=== PATIENT | female | born 1945 | race Caucasian/White ===

== ENCOUNTER 2016-10-30 11:43 | Inpatient (IN) ==
[~2016-10-30 11:43] MED LIST: ceFAZolin 1 GM VIAL IV SCH
[2016-10-30] MEDS ORDERED: HYDROmorphone 2 MG/ML SYRINGE IV PRN ×3 (12:26→19:12)
[2016-10-30 12:33] LABS: Basophils # (Auto) 0 K/mcL (0.0-0.3); Basophils % (Auto) 0.3 % (0.0-2.0); Eosinophils # (Auto) 0.2 K/mcL (0.0-0.7); Eosinophils % (Auto) 1.5 % (0.0-7.0); Granulocytes % (Auto) 79.7 % (38.0-78.0); Lymphocytes # (Auto) 1.3 K/mcL (1.5-4.8); Lymphocytes % (Auto) 10.4 % (15.5-49.0); Mean Cell Volume 84.7 fL (80.0-100.0); Mean Corpuscular HGB Conc 31.6 g/dL (31.0-36.0); Mean Corpuscular Hemoglobin 26.8 pg (26.0-34.0); Monocytes % (Auto) 8.1 % (1.0-9.0); Platelet Count 327 K/mcL (140-440); RBC 4.13 M/mcL (4.00-5.20); Red Cell Distribution Width 16.8 % (11.5-14.5)
[2016-10-30 12:46] LABS: Blood Urea Nitrogen 13 mg/dl (8-23)
[2016-10-30 15:58] LABS: Appearance,Urine HAZY; Bacteria,Urine 0 /hpf (0); Bilirubin,Urine NEG (NEG); Color,Urine YELLOW; Glucose,Urine (UA) NEGATIVE (NEG); Leukocyte Esterase,Urine 250 /uL (NEG); Mucus,Urine FEW /hpf (0); Nitrate,Urine NEG (NEG); Protein,Urine NEG (NEG); Specific Gravity,Urine 1.023 (1.000-1.035); Urine Blood NEG mg/dL (<0.03); Urine RBC 1 /hpf (0-1); Urine Squamous Epithelial Cell 12 /hpf (0-4); Urine Transitional Epi Cells < 1 /hpf (0-2); Urine WBC 7 /hpf (0-4); Urobilinogen,Urine NEG (NEG)
[2016-10-30] MEDS ORDERED: 0.9 % SODIUM CHLORIDE 250 ML IV SCH (16:45)
[2016-10-30] MEDS ORDERED: TRANEXAMIC ACID 1,000 MG/10 ML VIAL IV ONE ×3 (17:10→19:43)
[2016-10-30] MEDS ORDERED: MIDAZOLAM 5 MG/5 ML VIAL IV ONE (17:10)
[2016-10-30] MEDS ORDERED: LIDOCAINE HCL/PF 100 MG/5 ML SYRINGE IV ONE (17:10)
[2016-10-30] MEDS ORDERED: ROPIVACAINE HCL/PF 30 ML VIAL IJ ONE (17:10)
[2016-10-30] MEDS ORDERED: PROPOFOL 200 MG/20 ML VIAL IV ONE (17:10)
[2016-10-30] MEDS ORDERED: PHENYLEPHRINE 10 MG/ML VIAL IV ONE (17:10)
[2016-10-30] MEDS ORDERED: ONDANSETRON 4 MG/2 ML VIAL IV ONE (17:10)
[2016-10-30] MEDS ORDERED: SUCCINYLCHOLINE 20 MG/ML ML IV ONE (17:10)
[2016-10-30] MEDS ORDERED: fentaNYL 250 MCG/5 ML VIAL IV ONE (17:10)
[2016-10-30] MEDS ORDERED: MEPERIDINE 25 MG/ML SYRINGE IV PRN (18:45)
[2016-10-30] MEDS ORDERED: ePHEDrine 50 MG/ML AMPUL IV PRN (18:45)
[2016-10-30] MEDS ORDERED: LACTATED RINGERS 1,000 ML IV SCH (18:45)
[2016-10-30] MEDS ORDERED: METHOCARBAMOL 1,000 MG/10 ML VIAL IV PRN (18:45)
[2016-10-30] MEDS ORDERED: METOPROLOL TARTRATE 5 MG/5 ML VIAL IV PRN (18:45)
[2016-10-30] MEDS ORDERED: FLUMAZENIL 0.1 MG/ML ML IV PRN (18:45)
[2016-10-30] MEDS ORDERED: IPRATROPIUM/ALBUTEROL 3 ML AMPUL.NEB NEB PRN (18:45)
[2016-10-30] MEDS ORDERED: diphenhydrAMINE 50 MG/ML VIAL IV PRN (18:45)
[2016-10-30] MEDS ORDERED: ATROPINE SULFATE 0.4 MG/ML VIAL IV PRN (18:45)
[2016-10-30] MEDS ORDERED: BENZOCAINE/MENTHOL 1 LOZENGE PO PRN ×2 (18:45→19:12)
[2016-10-30] MEDS ORDERED: NALOXONE HCL 0.4 MG/ML VIAL IV PRN (18:45)
[2016-10-30] MEDS ORDERED: PROMETHAZINE 25 MG/ML VIAL IV PRN (18:45)
[2016-10-30] MEDS ORDERED: ONDANSETRON 4 MG/2 ML VIAL IV PRN ×2 (18:45→19:12)
[2016-10-30] MEDS ORDERED: GENTAMICIN SULFATE 800 MG/20 ML VIAL IR ONE (18:57)
[2016-10-30] MEDS ORDERED: MAGNESIUM HYDROXIDE 30 ML ORAL.SUSP PO PRN (19:12)
[2016-10-30] MEDS ORDERED: TEMAZEPAM 15 MG CAPSULE PO PRN (19:12)
[2016-10-30] MEDS ORDERED: POLYETHYLENE GLYCOL 3350 17 GM PACKET PO PRN (19:12)
[2016-10-30] MEDS ORDERED: FLEETS ADULT ENEMA PR PRN (19:12)
[2016-10-30] MEDS ORDERED: ACETAMINOPHEN 325 MG TABLET PO PRN (19:12)
[2016-10-30] MEDS ORDERED: BISACODYL 10 MG SUPP.RECT PR PRN (19:12)
[2016-10-30] MEDS ORDERED: DIAZEPAM 5 MG TABLET PO PRN (19:14)
--- NOTE | 2016-10-30 19:19 | Brief Operative Note ---
Date of procedure: 10/30/16 Pre-op diagnosis: right shoulder 3 part fracture of the humeral proximal neck and head with d Post-op diagnosis: same Procedure: right shoulder orif and reverse tsa and bicep tenodesis Grafts/Implants: Yes Anesthesia: GETA Complications: none Surgeon: Jose Raul Navarro Rn Training: James Richard Estimated blood loss (cc): 50 Specimens Removed/Pathology: none sent Condition: stable Disposition: PACU
[2016-10-30] MEDS: fentaNYL 100 MCG/2 ML VIAL IV PRN ×2 (19:30→19:35)
[2016-10-30] MEDS ORDERED: fentaNYL 100 MCG/2 ML VIAL IV ONE (19:43)
[2016-10-30] MEDS ORDERED: HYDROmorphone 2 MG/ML SYRINGE ONE (19:44)
[2016-10-30] MEDS: 0.45 % SODIUM CHLORIDE 1,000 ML IV SCH (22:01)
[2016-10-30] MEDS: ATORVASTATIN 20 MG TABLET PO SCH (22:01)
[2016-10-30] MEDS: 0.9 % SODIUM CHLORIDE 10 ML SYRINGE IV SCH (22:02)
[2016-10-30] MEDS: DOCUSATE SODIUM 100 MG CAPSULE PO SCH (22:03)
[2016-10-30] MEDS: SENNOSIDES 1 TABLET PO SCH (22:03)
[2016-10-31] MEDS: ceFAZolin 1 GM VIAL IV SCH ×2 (01:08→10:53)
[2016-10-31] MEDS: HYDROcodone/APAP 10/325MG TABLET PO PRN ×4 (05:27→23:50)
[2016-10-31] MEDS: KETOROLAC 15 MG/ML VIAL IV PRN ×2 (05:29→18:43)
[2016-10-31] MEDS: 0.45 % SODIUM CHLORIDE 1,000 ML IV SCH ×2 (05:30→10:45)
[2016-10-31] MEDS: 0.9 % SODIUM CHLORIDE 10 ML SYRINGE IV SCH ×3 (06:10→22:18)
--- NOTE | 2016-10-31 06:48 | XRay Report ---
CLINICAL INFORMATION: Postop total shoulder prostheses COMPARISON: Preoperative film 10/25/2016 FINDINGS: Shoulder prostheses is anatomically aligned. There is a obliquely oriented fracture through the lateral surgical neck which is minimally displaced. The acromioclavicular joint shows minimal degeneration. Soft tissues swelling seen - as expected. IMPRESSION: Right total shoulder prostheses in anatomic position Interpreted and Authenticated by: Eladio Goode 10/31/16
[2016-10-31] MEDS: PANTOPRAZOLE 40 MG TABLET PO SCH (07:44)
--- NOTE | 2016-10-31 10:51 | Discharge Summary ---
Ortho Discharge - TSA - Patient Instructions Diet: Regular Diet Activity: activity as tolerated, weight bearing as tolerated Total Shoulder Protocol: Leave immobilizer in place except for bathing and ROM. Abduction pillow. Continue to wear sling until seen by physician. Codman Pendulum : These exercises use momentum produced by your body to move your shoulder joint. Bend your knees and shift your weight to your front leg, then back, allowing your arm to swing in the same directions. Using the same technique, alternately shift your weight between your right and left legs, allowing your arm to swing from side to side. These exercises are also performed in counterclockwise and clockwise circular motions. Typically these exercises are performed several times per day, for a set number repetitions or minutes, such as 20 times in a row or 5 minutes at a time. Dressing Care: Yvanel Ag - leave on for 5 days Patient Education: Joint Replacement Surgery (DC) - Follow Up Plan Follow Up Appointments: James Richard PA-C [Physician Mandarin Chinese Teacher] - 11/12/16 10:50 am Disposition: Home, Self-Care Prognosis: Good Rehab Potential: Good I certify that the patient requires SNF services: No Overall status at discharge: patient is progressing back to baseline
[2016-10-31] MEDS: DOCUSATE SODIUM 100 MG CAPSULE PO SCH ×2 (10:53→20:06)
--- NOTE | 2016-10-31 10:57 | Orthopedic Progress Note ---
Subjective Patient information: Note initiated : 10/31/16 at 10:55 am Service Date, if different from initiated Date: [] Patient: Sveta Larsen 71 y/o F admitted on 10/30/16 for Rigth Shoulder 3 part Fracture - Reverse Total . Chief Complaint: feels better with no sob and able to walk but feels weak for not eating[] Objective Vital signs: Vital Signs Temp Pulse Resp BP BP Pulse Ox 10/31/16 07:28 98.6 F 77 18 135/65 92 10/31/16 04:44 98.0 F 91 H 20 158/74 93 10/31/16 00:00 98.2 F 80 22 148/60 95 10/30/16 20:05 97.2 F L 83 16 155/82 154/66 97 10/30/16 20:00 97.5 F L 86 16 152/81 97 10/30/16 19:50 97.2 F L 82 16 155/82 161/61 99 10/30/16 19:35 97.2 F L 88 20 155/82 167/76 100 10/30/16 19:25 97.2 F L 85 16 155/82 155/79 98 10/30/16 19:20 97.2 F L 86 16 155/82 148/69 100 10/30/16 19:15 97.2 F L 95 H 16 155/82 156/88 95 10/30/16 15:40 98.2 F 94 H 16 137/76 92 10/30/16 12:20 98.0 F 92 H 18 155/82 94 10/30/16 11:43 98.9 F 76 18 155/82 98 Intake and Output 10/30/16 10/31/16 10/31/16 21:59 05:59 13:59 Intake Total 1700 / 1700 1750 / 1750 360 / 360 Output Total 1050 / 1050 Balance 1700 / 1700 700 / 700 360 / 360 Intake: IV 1000 / 1000 Sodium Chloride 0.45% 1, 1000 / 1000 000 ml @ 125 mls/hr IV . Q8H [facility] Rx#:[id number] Oral 750 / 750 360 / 360 IV - Manual Only 1700 / 1700 Output: Void Amount 1050 / 1050 Other: Meal Breakfast Percent of Meal Consumed npo 100% Feeding Ability Independent Weight 155 lb 155 lb Patient Weight 11/01/16 05:59 Weight 155 lb Intake & Output: Intake & Output 10/30/16 10/31/16 10/31/16 21:59 05:59 13:59 Intake Total 1700 / 1700 1750 / 1750 360 / 360 Output Total 1050 / 1050 Balance 1700 / 1700 700 / 700 360 / 360 Weight 155 lb 155 lb Intake: IV 1000 / 1000 Sodium Chloride 0.45% 1, 1000 / 1000 000 ml @ 125 mls/hr IV . Q8H [facility] Rx#:[id number] Oral 750 / 750 360 / 360 IV - Manual Only 1700 / 1700 Output: Void Amount 1050 / 1050 Other: Meal Breakfast Percent of Meal Consumed npo 100% Feeding Ability Independent Incision: Yes healing Incision clean and dry: Yes Dressing: Yes clean Weight bearing status: non Neurological exam IM: Yes oriented X3, Yes neurovascular intact Extremities exam IM: Yes Foot pink and warm, Yes neurovascular intact (sat only 92 percent on 2liters o2) - Labs CBC & BMP: 10/30/16 11:58 10/30/16 11:58 Labs: 10/30/16 11:58 Hgb 11.0 L Hct 35.0 L
[2016-10-31] MEDS: LACTOBACILLUS 1 CAPSULE PO SCH ×2 (11:02→22:00)
[2016-10-31] MEDS: ATORVASTATIN 20 MG TABLET PO SCH (20:02)
[2016-10-31] MEDS: SENNOSIDES 1 TABLET PO SCH (20:06)
[2016-11-01] MEDS: HYDROcodone/APAP 10/325MG TABLET PO PRN ×3 (03:58→12:17)
[2016-11-01] MEDS: 0.9 % SODIUM CHLORIDE 10 ML SYRINGE IV SCH (05:34)
[2016-11-01] MEDS: KETOROLAC 15 MG/ML VIAL IV PRN (07:02)
[2016-11-01] MEDS: PANTOPRAZOLE 40 MG TABLET PO SCH (07:03)
[2016-11-01] MEDS: DOCUSATE SODIUM 100 MG CAPSULE PO SCH (07:03)
[2016-11-01] MEDS: LACTOBACILLUS 1 CAPSULE PO SCH (07:04)
--- NOTE | 2016-11-01 11:51 | Orthopedic Progress Note ---
Subjective Patient information: Note initiated : 11/01/16 at 11:49 am Service Date, if different from initiated Date: [] Patient: Sveta Larsen 71 y/o F admitted on 10/30/16 for Rigth Shoulder 3 part Fracture - Reverse Total . Chief Complaint: [no sob and pain is minimal] Objective Vital signs: Vital Signs Temp Pulse Resp BP BP Pulse Ox 11/01/16 07:01 97.9 F 73 18 117/64 92 11/01/16 04:00 97.8 F 82 18 119/64 94 10/31/16 23:53 98.7 F 79 16 154/74 92 10/31/16 21:15 93 10/31/16 19:06 96 10/31/16 19:00 97.6 F 80 18 146/62 97 10/31/16 15:44 98.8 F 88 18 154/63 94 Intake and Output 10/31/16 11/01/16 11/01/16 21:59 05:59 13:59 Intake Total 450 / 450 400 / 400 440 / 440 Output Total 550 / 550 250 / 250 100 / 100 Balance -100 / -100 150 / 150 340 / 340 Intake: Oral 450 / 450 400 / 400 440 / 440 Output: Void Amount 550 / 550 250 / 250 100 / 100 Other: Meal Dinner Breakfast Percent of Meal Consumed 85 100% Feeding Ability Independent Independent Intake & Output: Intake & Output 10/31/16 11/01/16 11/01/16 21:59 05:59 13:59 Intake Total 450 / 450 400 / 400 440 / 440 Output Total 550 / 550 250 / 250 100 / 100 Balance -100 / -100 150 / 150 340 / 340 Intake: Oral 450 / 450 400 / 400 440 / 440 Output: Void Amount 550 / 550 250 / 250 100 / 100 Other: Meal Dinner Breakfast Percent of Meal Consumed 85 100% Feeding Ability Independent Independent Incision: Yes healing Incision clean and dry: Yes Dressing: Yes clean Weight bearing status: non Neurological exam IM: Yes oriented X3, Yes neurovascular intact Extremities exam IM: Yes Foot pink and warm (dc home) - Labs CBC & BMP: 10/30/16 11:58 10/30/16 11:58 Labs: 10/30/16 11:58 Hgb 11.0 L Hct 35.0 L Assessment and Plan (1) Humerus head fracture Status: Acute Priority: High Comment: dc home fu in 2 weeks Qualifiers: Fracture healing: with routine healing
--- NOTE | 2016-11-02 07:12 | Operative Note ---
DATE OF OPERATION: 10/30/2016 PREOPERATIVE DIAGNOSIS: Right shoulder 3-part fracture, severely displaced of the surgical neck and greater tuberosity with dislocation of the humeral head with a biceps tendon tear. POSTOPERATIVE DIAGNOSIS: Right shoulder 3-part fracture, severely displaced of the surgical neck and greater tuberosity with dislocation of the humeral head with a biceps tendon tear. PROCEDURE: Right shoulder open reduction and internal fixation of the greater tuberosity and lesser tuberosity with a reverse total shoulder replacement and biceps tenodesis. SURGEON: Jose Raul Navarro MD THERMOPLASTIC TECHNICIAN: James Richard PA-C ANESTHESIA: General LMA anesthesia. COMPLICATIONS: None. IMPLANTS: A Mcbee reverse total shoulder cemented stem, a 36 mm glenosphere and a standard metaglene with 4 screws as per nurse's note, standard thickness poly. COMPLICATIONS: None. DESCRIPTION OF PROCEDURE: The patient was brought to the operating room and put to sleep with general LMA anesthesia. Once asleep, the patient had the right shoulder sterilely prepped and draped in the usual sterile fashion. Once complete, we placed Ioban over the skin and confirmed the operative side and patient had received preoperative antibiotics and tranexamic acid. We made a deltopectoral approach and identified a severely displaced proximal humerus fracture, released the subscap and dislocated the humeral head which was completely inferiorly dislocated. This was removed. Once this was done, we then reduced the greater tuberosity as a separate fragment and placed sutures on the subscap, supraspinatus, infraspinatus, and teres minor and biceps tendon which had been ruptured. We then prepared the glenoid. We exposed the glenoid, released 360 degree capsulotomy, placed a central guidewire and reamed with a 36 mm reamer at 10 degrees of inclination. Once complete, we then took the shoulder and placed this metaglene with a 24 mm central screw and three additional screws on to the bleeding bone. Once this was done, we tapped into place a 36 mm glenosphere. This was 2 mm of offset and 2 mm of the inferior offset. Once this was done, we then paid attention to the humerus which was broached up to the size 9. This was trialed. This seemed to give excellent tension and length. We then reduced the shoulder after cementing into place a size 7 stem at 30 degrees of retroversion. The proximal body was then assembled and put into place once dry. We then reduced the shoulder and repaired the greater tuberosity to the deltoid and the pectoralis major. The subscap was advanced to help hold the greater tuberosity into place. Some drill holes through the bone were made and these sutures were passed to hold the humerus and the greater tuberosity together. This was oversewn. The interval between the lesser of the supraspinatus and subscap. We irrigated thoroughly, repaired the deltopectoral interval and then closed the skin with 2-0 Vicryls and brandy. Sterile bandage applied. We placed the patient into a Donjoy sling. The patient tolerated this well. Also note that we did repair the biceps tendon and reattached it to this pectoralis major using FiberWire interrupted stitches. This gave excellent repair. The wound was thoroughly irrigated and closed in a standard fashion as noted, brandy superficially. A Donjoy sling was fitted and given. RBH:[email or web address] Job ID: [id number] Doc ID: [id number] Jose Raul Navarro MD
== END 2016-11-01 12:15 | disposition home or self-care (01) | DRG 483 ==
LOC: MEDSUR 11:43
PROVIDERS: ADMIT Orthopaedic Surgery; ATTEND Orthopaedic Surgery